=== PATIENT | female | born 1960 | race Hispanic/Latino ===

== ENCOUNTER 2017-05-13 15:15 | Outpatient (CLI) | payer OTHER ==
--- NOTE | 2017-05-13 15:36 | XRay Report ---
RIGHT ELBOW, 3 views: HISTORY: right elbow pain. The bony architecture is intact without evidence of fracture or dislocation. No significant soft tissue abnormality is seen. IMPRESSION: Normal right elbow.
== END 2017-05-13 15:16 | disposition home or self-care (01) ==
LOC: SPVIMAG 15:15
PROVIDERS: ATTEND Orthopaedic Surgery
DX: M25.521 Pain in right elbow (principal)